=== PATIENT | female | born 1990 | race Caucasian/White ===

== ENCOUNTER 2020-09-21 09:35 | Day surgery (SDC) | payer MEDICAID ==
[~2020-09-21] VITALS: Ht 170.2 cm; Wt 63.6 kg
[2020-09-21 08:50] VITALS: BP 97/57
[2020-09-21] MEDS ORDERED: fentaNYL/PF 50MCG/1 ML 2ML syringe ONE (09:59)
[2020-09-21] MEDS ORDERED: MIDAZolam 1 MG/ML 5ML VIAL ONE (10:00)
[2020-09-21 11:30] VITALS: BP 103/69
[2020-09-21 11:40] VITALS: BP 95/66
[2020-09-21 11:50] VITALS: BP 94/53
[2020-09-21 12:00] VITALS: BP 94/77
== END 2020-09-21 12:20 | disposition home or self-care (01) ==
LOC: GI LAB 09:35
PROVIDERS: ATTEND Internal Medicine Gastroenterology
DX: K92.1 Melena (principal); K62.89 Other specified diseases of anus and rectum; K64.8 Other hemorrhoids; D12.8 Benign neoplasm of rectum
CPT/HCPCS: 45380; 99152; 99153; J2250; J3010; J7040; A4620